=== PATIENT | female | born 1990 | race Caucasian/White ===

== ENCOUNTER 2018-09-10 04:44 | Emergency (ER) | payer MEDICAID ==
[~2018-09-10] VITALS: Ht 157.5 cm; Wt 58.2 kg
[2018-09-10 04:47] VITALS: BP 117/71
== END 2018-09-10 06:00 | disposition left against medical advice (07) ==
LOC: EMS 04:46
DX: M54.2 Cervicalgia (principal); R51 Headache; F41.9 Anxiety disorder, unspecified; F17.210 Nicotine dependence, cigarettes, uncomplicated; Z53.21 Procedure and treatment not carried out due to patient leaving prior to being seen by health care provider